=== PATIENT | male | born 1990 | race Caucasian/White ===

== ENCOUNTER 2019-12-26 17:08 | Emergency (ER) | payer OTHER ==
[2019-12-26] MEDS ORDERED: ceFAZolin 1,000 MG VIAL (IM USE) IM STA (17:27)
[2019-12-26] MEDS ORDERED: LIDOCAINE 1% INJ 10MG/ML (20 ML MDV) SQ ONE (17:27)
--- NOTE | 2019-12-26 17:49 | XR ---
EXAMINATION TYPE: XR finger LT DATE OF EXAM: 12/26/2019 COMPARISON: NONE HISTORY: Laceration TECHNIQUE: 3 views FINDINGS: There is transverse fracture of the mid shaft of the distal phalanx of the index finger. Th ere is soft tissue deformity. IMPRESSION: Laceration deformity with nondisplaced fracture of the distal phalanx. No evidence of rad iopaque foreign body.
[2019-12-26] MEDS ORDERED: GELATIN SPONGE,ABSORB (LARGE) 1 EACH SPONGE TOPICAL STA (18:44)
--- NOTE | 2019-12-26 18:56 | ED ---
Wound/Laceration HPI - General Chief Complaint: Wound/Laceration Stated Complaint: Finger laceration Source: patient Mode of arrival: ambulatory Limitations: no limitations - History of Present Illness Initial Comments: 29-year-old male presenting today for chief complaint of laceration to left index finger tip is prior to arrival. Patient states just prior to arrival he was using a circular saw when he slipped cutting the tip of his left index finger. Patient denies any decreased range of motion or strength states that H over the finger is missing. Patient denies any limitation of the digit or the tip of the finger. Patient denies additional complaints or areas of injury remaining review of systems negative patient states tetanus up-to-date within the last 5 years. - Related Data Previous Rx's Medication Instructions Recorded Cephalexin [Keflex] 500 mg PO Q6HR 7 Days #28 cap 12/26/19 Allergies Allergy/AdvReac Type Severity Reaction Status Date / Time No Known Allergies Allergy Verified 12/26/19 17:23 Review of Systems ROS Statement: Those systems with pertinent positive or pertinent negative responses have been documented in the HPI. ROS Other: All systems not noted in ROS Statement are negative. Past Medical History Past Medical History: No Reported History History of Any Multi-Drug Resistant Organisms: None Reported Past Surgical History: No Surgical Hx Reported Past Psychological History: No Psychological Hx Reported Smoking Status: Never smoker Past Alcohol Use History: Occasional Past Drug Use History: Marijuana General Exam - General Exam Comments Initial Comments: General: The patient is awake and alert Eye: Pupils are equal, round and reactive to light, extra-ocular movements are intact. No nystagmus. There is normal conjunctiva bilaterally. No signs of icterus. Cardiovascular: There is a regular rate and rhythm. No murmur, rub or gallop is appreciated. Respiratory: Lungs are clear to auscultation, respirations are non-labored, breath sounds are equal. No wheezes, stridor, rales, or rhonchi. Musculoskeletal: Normal ROM athe MCP, DIP and PIP joint, no tenderness. Strength 5/5 of the DIP, PIP, MCP jointa. Sensation intact at distal tip with < 3 second capillary refilll at tip of digit. Radial pulses equal bilaterally 2+. Neurological: A&O x 3. CN II-XII intact grossly, There are no obvious motor or sensory deficits. Coordination appears grossly intact. Speech is normal. Skin: Skin is warm and dry and no rashes.Avulsion of 2cm irregular chunk of skin medial aspect of the left indiex finger, small flap on lateral aspect. No bone or tendon exposed no evidence of foreign body Psychiatric: Cooperative, appropriate mood & affect, normal judgment. Limitations: no limitations Course Vital Signs 12/26/19 12/26/19 17:10 19:17 Temperature 97.7 F 97.9 F Pulse Rate 71 55 L Respiratory 16 17 Rate Blood Pressure 158/82 131/63 O2 Sat by Pulse 97 99 Oximetry Medical Decision Making - Medical Decision Making 29-year-old male presenting for chief complaint of laceration left index finger. Significant skin avulsion however no evidence of bone or tendon exposure. Neurovascularly intact no evidence of tendon injury from physical examination. XR revealed tuft fracture. No foreign body identified skin flap was sutured down using 1 5. 0 nylon suture simple interrupted method after extensive irrigation and cleansing with iodine. Patient given cefzol. Patient had bandaged placed loosely. Discussed the importance of f/u and monitoring for infection. Patient given hand surgery f/u. Patient discharged appearing well after discussed case with Angely Corbin Disposition Clinical Impression: Skin avulsion, Open fracture of tuft of distal phalanx of left thumb Disposition: HOME SELF-CARE Condition: Good Instructions (If sedation given, give patient instructions): Skin Avulsion (ED) Additional Instructions: Please use medication as discussed. [facility] within the next [address] Gomez to set appointment tomorrow morning. Please return to emergency room if the symptoms increase or worsen or for any other concerns. Prescriptions: Cephalexin [Keflex] 500 mg PO Q6HR 7 Days #28 cap Is patient prescribed a controlled substance at d/c from ED?: No Referrals: None,Stated [Primary Care Provider] - 1-2 days Devan Gomez DO [Medical Doctor] - 1-2 days Time of Disposition: 18:56
[2019-12-26] MEDS ORDERED: ACET/COD 300 MG/30 MG STARTER PACK 6 TAB BTL PO STA (18:58)
[2019-12-26 19:18] VITALS: BP 131/63; PULSE 55; RESP 17; TEMP 97.9
== END 2019-12-26 19:17 | disposition home or self-care (01) ==
LOC: EC 17:08
DX: S62.522B Displaced fracture of distal phalanx of left thumb, initial encounter for open fracture (principal); W31.2XXA Contact with powered woodworking and forming machines, initial encounter; Y93.89 Activity, other specified; Y92.009 Unspecified place in unspecified non-institutional (private) residence as the place of occurrence of the external cause
CPT/HCPCS: 73140; 96372; 99283; 12001; J0690; J2001

== ENCOUNTER 2019-12-29 19:41 | Emergency (ER) | payer OTHER ==
[2019-12-29 19:50] VITALS: BP 153/78; PULSE 57; RESP 18; TEMP 97.7
[2019-12-29] MEDS ORDERED: CEPHALEXIN 500MG STARTER PACK 4 CAP BTL PO STA (20:17)
--- NOTE | 2019-12-29 20:18 | ED ---
Wound/Laceration HPI - General Source: patient Mode of arrival: ambulatory Limitations: no limitations <Luis M Sánchez - Last Filed: 12/29/19 23:38> <Nasra Kumar - Last Filed: 01/07/20 00:38> - General Chief Complaint: Wound/Laceration Stated Complaint: LT finger injury recheck Time Seen by Provider: 12/29/19 19:53 - History of Present Illness Initial Comments: Patient is a 29-year-old male presenting to the emergency department with a chief complaint of left finger injury. Patient states he was in the emergency department 3 days ago for laceration. States this was circular saw laceration distal end of the left index finger. States he received several sutures. Patient reports he was prescribed antibiotics but he never picked him up. States today his daughter accidentally pulled on his finger and some of the sutures came out. States the laceration site is still "raw" but denies any discharge. Denies any night sweats fevers or chills. Reports full range of motion in the finger. (Luis M Sánchez) - Related Data Previous Rx's Medication Instructions Recorded Cephalexin [Keflex] 500 mg PO Q6HR 7 Days #28 cap 12/26/19 Allergies Allergy/AdvReac Type Severity Reaction Status Date / Time No Known Allergies Allergy Verified 12/29/19 19:50 Review of Systems ROS Other: All systems not noted in ROS Statement are negative. <Luis M Sánchez - Last Filed: 12/29/19 23:38> ROS Other: All systems not noted in ROS Statement are negative. <Nasra Kumar - Last Filed: 01/07/20 00:38> ROS Statement: Those systems with pertinent positive or pertinent negative responses have been documented in the HPI. Past Medical History Past Medical History: No Reported History History of Any Multi-Drug Resistant Organisms: None Reported Past Surgical History: No Surgical Hx Reported Past Psychological History: No Psychological Hx Reported Smoking Status: Never smoker Past Alcohol Use History: Occasional Past Drug Use History: Marijuana <Luis M Sánchez - Last Filed: 12/29/19 23:38> General Exam Limitations: no limitations General appearance: alert, in no apparent distress Head exam: Present: atraumatic, normocephalic, normal inspection Eye exam: Present: normal appearance, PERRL, EOMI Pupils: Present: normal accommodation ENT exam: Present: normal exam, normal oropharynx, mucous membranes moist Neck exam: Present: normal inspection, full ROM. Absent: tenderness Respiratory exam: Present: normal lung sounds bilaterally. Absent: respiratory distress, wheezes, rales Cardiovascular Exam: Present: regular rate, normal rhythm, normal heart sounds Extremities exam: Present: full ROM, tenderness (Tenderness at the site of laceration), normal capillary refill (Less than 2 seconds on all digits), other (+2 ulnar and radial pulses bilaterally.). Absent: normal inspection (Irregular healing laceration of the distal end of the left second digit. Only one suture appears to be in place) Back exam: Present: normal inspection, full ROM Neurological exam: Present: alert, oriented X3 Psychiatric exam: Present: normal affect, normal mood Skin exam: Present: warm, dry, intact, normal color <Luis M Sánchez - Last Filed: 12/29/19 23:38> Course Vital Signs 12/29/19 19:45 Temperature 97.7 F Pulse Rate 57 L Respiratory 18 Rate Blood Pressure 153/78 O2 Sat by Pulse 100 Oximetry Medical Decision Making <Luis M Sánchez - Last Filed: 12/29/19 23:38> <Nasra Kumar - Last Filed: 01/07/20 00:38> - Medical Decision Making Patient a 29-year-old male presenting to the emergency department with chief complaint of left finger injury. On physical examination, there appears to be only 1 suture still left in place. No signs of infection at this time. No discharge noted. Patient did have Gelfoam applied. Patient is vascularly intact with normal capillary refill on the digit. Patient has full range of motion in the PIP and DIP of the left second digit. No Nu Gauze was applied to the laceration site with some bacitracin. Tube gauze applied as well. Patient has not started has an appendix. Patient given a Keflex starter pack in the ED. She already has a prescription for 7 days of Keflex. Return parameters were thoroughly discussed the patient was understanding and agreeable. Case discussed with physician. (Luis M Sánchez) I was available for consultation in the emergency department. The history and physical exam were done by the midlevel provider. I was consulted for this patients care. I reviewed the case with the midlevel provider and based on their presentation of the patient, I agree with the assessment, medical decision making and plan of care as documented. Chart was dictated using Music Messenger (MM) dictation software. Attempts were made to correct any dictation errors however some typographical errors may persist. Patient was seen during a national state of emergency due to the Covid-19 pandemic. (Nasra Kumar) Disposition Is patient prescribed a controlled substance at d/c from ED?: No Time of Disposition: 23:39 <Luis M Sánchez - Last Filed: 12/29/19 23:38> <Nasra Kumar - Last Filed: 01/07/20 00:38> Clinical Impression: Encounter for re-check of laceration wound Disposition: HOME SELF-CARE Condition: Stable Instructions (If sedation given, give patient instructions): Skin Avulsion (ED) Additional Instructions: Follow-up with an import specialist. Return to emergency department if symptoms worsen. Take prescribed medication as directed. Referrals: None,Stated [Primary Care Provider] - 1-2 days David Horvath, PAC [PHYSICIAN MOTOR VEHICLE CLERK] - 1-2 days
== END 2019-12-29 20:56 | disposition home or self-care (01) ==
LOC: EC 19:41
DX: S61.211A Laceration without foreign body of left index finger without damage to nail, initial encounter (principal)
CPT/HCPCS: 99282

== ENCOUNTER 2024-07-14 03:57 | Emergency (ER) | payer OTHER ==
[2024-07-14] MEDS: KETOROLAC 15 MG/ML 1 ML VIAL IM STA (06:56)
[2024-07-14] MEDS: methylPREDNISolone SOD SUCCI 125 MG/2 ML VIAL IM ONE (06:56)
[2024-07-14] MEDS: LIDOCAINE 4% PATCH TOPICAL ONE (06:57)
--- NOTE | 2024-07-14 07:13 | XR ---
EXAMINATION TYPE: XR pelvis AP view DATE OF EXAM: 07/14/2024 6:54 AM COMPARISON: None CLINICAL INDICATION: Male, 33 years old with history of pain; pain [facility] TECHNIQUE: XR pelvis AP view, examined in a single projection. FINDINGS: There is no evidence of fracture or dislocation. There is no soft tissue abnormality. No a bnormal calcifications are present. The spine appears intact. The hips appear intact. No significant degeneration. IMPRESSION: No acute osseous pathology. [facility], , 07/14/2024 7:10 AM
--- NOTE | 2024-07-14 07:14 | XR ---
EXAMINATION TYPE: XR lumbar spine 2 or 3V DATE OF EXAM: 07/14/2024 6:54 AM COMPARISON: None CLINICAL INDICATION: Male, 33 years old with history of pain; PHH, pain TECHNIQUE: XR lumbar spine 2 or 3V - Frontal, lateral and coned in L5-S1 lateral views of the spine. FINDINGS: No evidence of any acute osseous pathology. No evidence of loss of vertebral body height i s seen. There is normal alignment of the lumbar vertebral bodies. No significant degeneration changes throughout the spine. IMPRESSION: No acute fracture. [facility], , 07/14/2024 7:12 AM
--- NOTE | 2024-07-14 07:27 | ED ---
General Adult HPI - General Chief complaint: Extremity Problem,Nontraumatic Stated complaint: Lft Leg Pain Time Seen by Provider: 07/14/24 05:35 Source: patient, RN notes reviewed Mode of arrival: ambulatory Limitations: no limitations - History of Present Illness Initial comments: 33-year-old male presents to the emergency department for evaluation of left lower extremity pain. Patient reports that he noticed pain in his back about 3 days ago. He relates that since then he has had pain radiating down his left leg. He does report that the pain in his back seems to have improved. He reports the pain is worse with certain movements and elevation of the leg. He denies loss of bowel or bladder function, saddle anesthesia, recent fever, chills. - Related Data Previous Rx's Medication Instructions Recorded Cephalexin [Keflex] 500 mg PO Q6HR 7 Days #28 cap 12/26/19 Cyclobenzaprine [Flexeril] 10 mg PO TID #9 tab 07/14/24 Ketorolac [Toradol] 10 mg PO Q8HR #15 tab 07/14/24 Lidocaine 5% Patch [Lidoderm 5% 1 patch TOPICAL DAILY #30 patch 07/14/24 Patch] Allergies Allergy/AdvReac Type Severity Reaction Status Date / Time No Known Allergies Allergy Verified 07/14/24 04:00 Review of Systems ROS Statement: Those systems with pertinent positive or pertinent negative responses have been documented in the HPI. ROS Other: All systems not noted in ROS Statement are negative. Past Medical History Past Medical History: No Reported History History of Any Multi-Drug Resistant Organisms: None Reported Past Surgical History: No Surgical Hx Reported Past Psychological History: No Psychological Hx Reported Smoking Status: Never smoker Past Alcohol Use History: Occasional Past Drug Use History: Marijuana General Exam Limitations: no limitations General appearance: alert, in no apparent distress Head exam: Present: atraumatic, normocephalic, normal inspection Eye exam: Present: normal appearance, PERRL, EOMI. Absent: scleral icterus, conjunctival injection, periorbital swelling Respiratory exam: Present: normal lung sounds bilaterally. Absent: respiratory distress, wheezes, rales, rhonchi, stridor Cardiovascular Exam: Present: regular rate, normal rhythm, normal heart sounds. Absent: systolic murmur, diastolic murmur, rubs, gallop, clicks GI/Abdominal exam: Present: soft. Absent: distended, tenderness, guarding, rebound, rigid Extremities exam: Present: normal inspection, full ROM, normal capillary refill. Absent: tenderness, pedal edema, joint swelling, calf tenderness Back exam: Present: normal inspection, full ROM, other (Positive straight leg raise on the left) Neurological exam: Present: alert, oriented X3 Psychiatric exam: Present: normal affect, normal mood Skin exam: Present: warm, dry, intact, normal color. Absent: rash Course Vital Signs 07/14/24 03:57 Temperature 98.5 F Pulse Rate 76 Respiratory 18 Rate Blood Pressure 139/92 O2 Sat by Pulse 99 Oximetry Medical Decision Making - Medical Decision Making Was pt. sent in by a medical professional or institution (, PA, RUBBER GOODS CUTTER FINISHER, urgent care, hospital, or skilled nursing...) When possible be specific @ -[No] Did you speak to anyone other than the patient for history (EMS, parent, family, police, friend...)? What history was obtained from this source @ -[No] Did you review nursing and triage notes (agree or disagree)? Why? @ -[I reviewed and agree with nursing and triage notes] Were old charts reviewed (outside hosp., previous admission, EMS record, old EKG, old radiological studies, urgent care reports/EKG's, skilled nursing records)? Report findings @ -[No old charts were reviewed] Differential Diagnosis (chest pain, altered mental status, abdominal pain women, abdominal pain men, vaginal bleeding, weakness, fever, dyspnea, syncope, headache, dizziness, GI bleed, back pain, seizure, CVA, palpatations, mental health, musculoskeletal)? @ -[Differential Back Pain: Strain, zoster, cauda equina syndrome, epidural abscess, vertebral osteomyelitis, discitis, fracture, subluxation, disc herniation, DJD, spinal stenosis, dissection, AAA, pancreatitis, peptic ulcer disease, pyelonephritis, kidney stone, this is not meant to be an all-inclusive list. ] EKG interpreted by me (3pts min.). @ -[None] X-rays interpreted by me (1pt min.). @ -[None done] CT interpreted by me (1pt min.). @ -[None done] U/S interpreted by me (1pt. min.). @ -[None done] What testing was considered but not performed or refused? (CT, X-rays, U/S, labs)? Why? @ -[None] What meds were considered but not given or refused? Why? @ -[None] Did you discuss the management of the patient with other professionals (professionals i.e. , PA, RUBBER GOODS CUTTER FINISHER, lab, RT, psych nurse, director social welfare, production support developer, teacher, ict customer support officer, director case)? Give summary @ -[No] Was smoking cessation discussed for >3mins.? @ -[No] Was critical care preformed (if so, how long)? @ -[No] Were there social determinants of health that impacted care today? How? (Homelessness, low income, unemployed, alcoholism, drug addiction, transportation, low edu. Level, literacy, decrease access to med. care, prison, rehab)? @ -[No] Was there de-escalation of care discussed even if they declined (Discuss DNR or withdrawal of care, Hospice)? DNR status @ -[No] What co-morbidities impacted this encounter? (DM, HTN, Smoking, COPD, CAD, Cancer, CVA, ARF, Chemo, Hep., AIDS, mental health diagnosis, sleep apnea, morbid obesity)? @ -[None] Was patient admitted / discharged? Hospital course, mention meds given and route, prescriptions, significant lab abnormalities, going to OR and other pertinent info. @ -[hospital course] Undiagnosed new problem with uncertain prognosis? @ -[No] Drug Therapy requiring intensive monitoring for toxicity (Heparin, Nitro, Insulin, Cardizem)? @ -[No] Were any procedures done? @ -[No] Diagnosis/symptom? @ -[default] Acute, or Chronic, or Acute on Chronic? @ -[default] Uncomplicated (without systemic symptoms) or Complicated (systemic symptoms)? @ -[default] Side effects of treatment? @ -[No] Exacerbation, Progression, or Severe Exacerbation? @ -[No] Poses a threat to life or bodily function? How? (Chest pain, [place], [place], pneumonia, PE, COPD, DKA, ARF, appy, cholecystitis, CVA, Diverticulitis, Homicidal, Suicidal, threat to staff... and all critical care pts) @ -[No] Disposition Clinical Impression: Sciatica Disposition: HOME SELF-CARE Condition: Stable Instructions (If sedation given, give patient instructions): Leg Pain (ED) Additional Instructions: Please follow up with your primary care provider. Return to the emergency department for new or worsening symptoms. Prescriptions: Cyclobenzaprine [Flexeril] 10 mg PO TID #9 tab Lidocaine 5% Patch [Lidoderm 5% Patch] 1 patch TOPICAL DAILY #30 patch Ketorolac [Toradol] 10 mg PO Q8HR #15 tab Is patient prescribed a controlled substance at d/c from ED?: No Referrals: Shadi Brown MD [Primary Care Provider] - 1-2 days
[2024-07-14] MEDS: ACET/COD 300 MG/30 MG STARTER PACK 6 TAB BTL PO STA (08:40)
[2024-07-14 08:44] VITALS: BP 150/88; PULSE 68; RESP 20; TEMP 97.6
== END 2024-07-14 08:44 | disposition home or self-care (01) ==
LOC: EC 03:57
DX: M54.30 Sciatica, unspecified side (principal)
CPT/HCPCS: 72100; 72170; 99283; 96372 ×2; J1885; J2919